=== PATIENT | female | born 1930 | race Caucasian/White ===

== ENCOUNTER → 2016-06-04 | Outpatient (CLI) | payer MEDICARE, OTHER | END | disposition home or self-care (01) | LOC: CFH 08:28 | PROVIDERS: ATTEND Neurological Surgery | DX: S12.112G Nondisplaced Type II dens fracture, subsequent encounter for fracture with delayed healing (principal); X58.XXXD Exposure to other specified factors, subsequent encounter; M40.50 Lordosis, unspecified, site unspecified; M43.22 Fusion of spine, cervical region; M85.88 Other specified disorders of bone density and structure, other site; S22.028A Other fracture of second thoracic vertebra, initial encounter for closed fracture; X58.XXXA Exposure to other specified factors, initial encounter; Y93.89 Activity, other specified; Y92.89 Other specified places as the place of occurrence of the external cause; Y99.8 Other external cause status | CPT/HCPCS: 72125 ==